=== PATIENT | female | born 1945 | race Caucasian/White ===

== ENCOUNTER 2016-08-05 05:17 | Observation (INO) | payer MEDICARE, OTHER ==
--- NOTE | ~2016-08-05 | DS ---
Discharge Summary [id number] [place] [address] NAME: CRISTINA PEDROZA : 43 STATUS : DIS Tanesha PAT#: [id number] AGE: 71 ADM/REG DATE : 08/05/16 MR#: [id number] REPORT SERV DATE: 08/07/16 DICTATED BY: JR. PANTOJA WILLIAM JOHN DATE: 08/06/16 REPORT STATUS : Draft TRANSCRIBED BY: GABBY DATE: 08/06/16 ADMISSION DATE: 08/05/2016 DISCHARGE DATE: 08/06/2016 DISCHARGE DIAGNOSES: 1. Hypoglycemia with dizziness. 2. Diabetes mellitus type 2 with a hemoglobin A1c of 7.4. 3. Hypertension. 4. Acute kidney injury. 5. History of coronary artery disease. 6. Chronic pain syndrome. OPERATIONS, PROCEDURES, AND TREATMENTS: Include: 1. CT of the brain done 08/05/2016, which showed mild atrophy without acute pathology. 2. Chest x-ray done 08/05/2016, which showed clear lungs with normal heart size. 3. MRI of the brain done 08/05/2016 which showed mild generalized atrophy without acute evidence of bleed or infarct. There was some old deep white matter ischemic change in both hemispheres. DISCHARGE MEDICATIONS: Include: 1. Lantus 20 units at the hour of sleep. 2. Methimazole 10 mg orally daily. 3. Metoprolol 25 mg orally twice a day. 4. Valium 10 mg orally three times a day. 5. Glipizide/metformin 2.5/500 two tablets orally twice a day. 6. Zanaflex 8 mg at bedtime. 7. Lasix 40 mg daily. 8. Prilosec 20 mg daily. 9. Potassium chloride 10 mEq daily. 10.Ramipril 2.5 mg daily. 11.Meclizine 25 mg every six hours as needed. 12.Albuterol metered-dose inhaler as needed. 13.Percocet 10/325 q.6 hours p.r.n. HOSPITAL COURSE: The patient was a 71-year-old white female with past history of diabetes mellitus with insulin requirement, who presented to the emergency room on 08/05/2016 after awakening with dizziness and confusion. She was found to be hypoglycemic. For complete details of the admission history, physical, and presenting data, please see Dr. Juliana Garcia' dictated history and physical. The patient was admitted to the hospital. She underwent an MRI of the brain, CT of the head, and chest x-ray, which were unrevealing. She was placed briefly on D5 drip. This was quickly weaned off. The patient had no further episodes of hypoglycemia, felt stable for discharge. She was seen by diabetic education, was supplied a new glucometer with prescription for test strips. We reviewed her home medications, and we will decrease her Lantus from 35 units at the hour of sleep to 20 units at the hour of sleep until seen by Dr. Discharge Summary [address]. [address] NAME: CRISTINA PEDROZA : 43 STATUS : DIS Tanesha PAT#: [id number] AGE: 71 ADM/REG DATE : 08/05/16 MR#: [id number] REPORT SERV DATE: 08/07/16 DICTATED BY: JR. PANTOJA WILLIAM JOHN DATE: 08/06/16 REPORT STATUS : Draft TRANSCRIBED BY: GABBY DATE: 08/06/16 Elsa. She was instructed to record her blood sugars up until followup with Dr. Hunter which is scheduled for 08/27/2016. I discussed with the patient that she will likely have somewhat higher blood sugars than she is used to up until followup with Dr. Hunter. FOLLOWUP ISSUES: 1. Refinement of antihyperglycemic regimen. 2. Needs to follow up with Ophthalmology as an outpatient as she reports visual changes, which have been progressive. 3. Routine health issues. WCoronaF/GABBY Abdirashid Pantoja Jr, MD / [id number] CC: MD Tariq Benavidez M.D.
--- NOTE | ~2016-08-05 | HP ---
History And Physical [address] [place]. [address] NAME: CRISTINA PEDROZA : 43 STATUS : ADM Tanesha PAT#: [id number] AGE: 71 ADM/REG DATE : 08/05/16 MR#: [id number] REPORT SERV DATE: 08/05/16 DICTATED BY: SANDOVAL MALDONADO DATE: 08/05/16 REPORT STATUS : Draft TRANSCRIBED BY: GABBY DATE: 08/05/16 DATE OF ADMISSION: 08/05/2016 CHIEF COMPLAINT: Dizziness and hypoglycemia. HISTORY OF PRESENT ILLNESS: A 71-year-old woman with past medical history of insulin- dependent diabetes type 2, brought into the hospital by EMS. The patient reports that she woke up in the morning feeling dizzy and confused. When she checked her sugars, noted to be at 66. At that time, she called the EMS, and she was brought into the hospital for further evaluation. The patient denies chest pain, shortness of breath, palpitations, diaphoresis, hemoptysis, melena, orthopnea, lower extremity swelling, slurred speech, localized weakness, loss of consciousness, headache, blurry vision, abdominal pain, nausea, vomiting, diarrhea, fever, chills, dysuria, urgency, or frequency. The patient was evaluated in the ED. Blood sugars were also noted to be low. The patient was given D50. The patient was also noted to have low magnesium level. Given 1 g in the emergency room. Hospitalist consulted for further inpatient management. Order was placed for a D10 at [facility]. ALLERGIES: INCLUDE CALCIUM CARBONATE, BUTORPHANOL TARTRATE, AND OTHERS PER MED. HOME MEDICATIONS: Include: 1. Potassium chloride 10 mEq p.o. daily. 2. Lasix 20 mg p.o. daily. 3. Diazepam 10 mg p.o. t.i.d. 4. Glucovance 5/500 one tab p.o. b.i.d. 5. Zanaflex 4 mg at bedtime. 6. Ramipril 2.5 mg p.o. daily. 7. Percocet 10/325 one tab p.o. every 6 hours as needed. 8. Lopressor 25 mg p.o. b.i.d. 9. Amaryl 4 mg p.o. daily. 10.Prilosec 20 mg p.o. daily. 11.Meclizine 25 mg p.o. every 6 hours as needed. 12.Combivent inhaled 4 times a day. PAST MEDICAL HISTORY: 1. Insulin-dependent diabetes type 2. 2. Hypertension. 3. Chronic back pain. SOCIAL HISTORY: Denies any alcohol, tobacco, or illicit drug use. PAST SURGICAL HISTORY: Hysterectomy and stents in 2003. FAMILY HISTORY: Noncontributory. REVIEW OF SYSTEMS: A 12-point system reviewed, otherwise negative per HPI. History And Physical [address] [address] NAME: CRISTINA PEDROZA : 43 STATUS : ADM Tanesha PAT#: [id number] AGE: 71 ADM/REG DATE : 08/05/16 MR#: [id number] REPORT SERV DATE: 08/05/16 DICTATED BY: SANDOVAL MALDONADO DATE: 08/05/16 REPORT STATUS : Draft TRANSCRIBED BY: GABBY DATE: 08/05/16 PHYSICAL EXAMINATION: VITALS: Temperature 98.2, heart rate 84, blood pressure 142/57, respiratory rate 14, O2 saturation 97 on room air. GENERAL: In no acute distress. HEENT: EOMI, PERRLA. Nonicteric sclerae. Nonerythematous pharynx. NECK: Supple. No JVD. No lymphadenopathy. RESPIRATORY: Clear to auscultation bilaterally. No wheezes, rhonchi, or crackles. CARDIOVASCULAR: Regular rate and rhythm. No murmurs, rubs, or gallops. ABDOMEN: Bowel sounds positive. Soft, nontender, nondistended. No rebound or guarding. EXTREMITIES: No edema or cyanosis. NEUROLOGICAL: Alert and oriented x3. Cranial nerves II through XII intact. Nonfocal. LABORATORY DATA: WBC of 7.6, hemoglobin 11.9, hematocrit 35.1, platelets 242. INR 1. Sodium 142, potassium 4.1, chloride 105, bicarb 29, creatinine 1.07, glucose 54, magnesium 1.1, troponin less than 0.2. Urinalysis negative. IMAGING: CT of the head without contrast. Impression: 1. Mild atrophy. No acute pathology seen. 2. Preliminary report was sent. Chest x-ray, portable. Impression: 1. Lungs clear. 2. Heart size normal. ASSESSMENT: 1. Dizziness secondary to hypoglycemia. 2. Insulin-dependent diabetes type 2. 3. Hypertension. 4. Acute renal insufficiency. 5. Hypomagnesemia. 6. Mild protein malnutrition. 7. Coronary artery disease, with history of PCI in 2003. 8. Chronic back pain. PLAN: The patient will be admitted for observation. Will be kept on D10W at KVO until blood glucose greater than 200. Accu-Cheks q.2 hours x3, then before meals and at bedtime. Start carb-modified diet. Hold insulin, long-acting and oral anti-hyperglycemics. Start sliding scale level 1 after blood glucose levels greater than 150. Replete magnesium. Electrolyte protocol. Check MRI of the head to rule out any evidence of CVA. EKG reviewed. No evidence of ACS. Troponin negative. Labs in the morning. Restart appropriate home medications. DVT prophylaxis, SCDs. GI prophylaxis, Pepcid. Further evaluation and management per clinical course. CODE STATUS: Full code. Total time for history and physical, 45 minutes. History And Physical [address] [address] NAME: CRISTINA PEDROZA : 43 STATUS : ADM Tanesha PAT#: [id number] AGE: 71 ADM/REG DATE : 08/05/16 MR#: [id number] REPORT SERV DATE: 08/05/16 DICTATED BY: SANDOVAL MALDONADO DATE: 08/05/16 REPORT STATUS : Draft TRANSCRIBED BY: GABBY DATE: 08/05/16 JERILYN/GABBY Diogenes Mahmood MD / [id number] CC: Diogenes Mahmood MD
[2016-08-05 04:25] LABS: BASOPHILS 0.3 %; BASOPHILS ABSOLUTE 0.02 10/3/uL (0.0-0.16); EOSINOPHILS 0.8 %; EOSINOPHILS ABSOLUTE 0.06 10/3/uL (0.0-0.53); ER CBC TAT 0 Hrs 08 Mins; HEMATOCRIT 35.1 % (36.0-48.0); HEMOGLOBIN 11.9 g/dL (12.0-16.0); IMMATURE GRANULOCYTES 0.1 %; IMMATURE GRANULOCYTES ABSOLUTE 0.01 10/3/uL (0.0-0.11); LYMPHOCYTES 29.8 %; LYMPHOCYTES ABSOLUTE 2.27 10/3/uL (0.67-4.30); MANUAL DIFF NO %; MEAN CORPUS HGB CONC 33.9 g/dL (32.0-36.0); MEAN CORPUSCULAR HEMOGLOB 30.8 pg (26.0-34.0); MEAN CORPUSCULAR VOLUME 90.9 fL (80-100); MEAN PLATELET VOLUME 9.8 fL (9.2-13.0); MONOCYTES 7.7 %; MONOCYTES ABSOLUTE 0.59 10/3/uL (0.21-1.20); NEUTROPHILS 61.3 %; NEUTROPHILS ABSOLUTE 4.68 10/3/uL (2.02-8.40); PLATELET COUNT 242 10/3/uL (150-400); RBC DISTRIBUTION WIDTH 11.6 % (12.0-16.0); RED CELL COUNT 3.86 10/6/uL (4.0-5.6); WHITE BLOOD CELLS 7.6 10/3/uL (4.5-10.5)
[2016-08-05 04:33] LABS: PARTIAL THROMBO TIME 38.5 SEC (22.5-37.2); PROTIME (NOT ORD) 13.3 SEC (12.0-14.5)
[2016-08-05 04:42] LABS: ALBUMIN 3.1 G/DL (3.5-5.0); CALCIUM, SERUM 8.7 MG/DL (8.5-10.4); CHEST PAIN PROFILE TAT 0 Hrs 25 Mins; CHLORIDE, SERUM 105 MMOL/L (96-112); CO2 (CARBON DIOXIDE) 29 MMOL/L (24-34); CREATININE 1.07 MG/DL (0.55-1.02); GFR AFRICAN AMERICAN 60 ML/MIN (>=60); GFR NON AFRICAN AMERICAN 52 ML/MIN (>=60); GLUCOSE, SERUM 96 MG/DL (60-99); POTASSIUM, SERUM 4.1 MMOL/L (3.5-5.3); SGOT(AST) 13 U/L (5-40); SGPT(ALT) 16 U/L (5-65); SODIUM, SERUM 142 MMOL/L (135-148); TOTAL BILIRUBIN 0.2 MG/DL (0-1.2); TOTAL PROTEIN 6.9 G/DL (6.0-8.5); TROPONIN I <0.02 NG/ML (<0.05)
[2016-08-05 04:43] LABS: ALKALINE PHOSPHATASE 87 U/L (45-117); BUN (BLOOD UREA NITROGEN) 25 MG/DL (6-23); DIRECT BILIRUBIN < 0.1 MG/DL (0.0-0.4); INDIRECT BILIRUBIN(NOT ORDER) 0.1 MG/DL (0.1-0.9)
[~2016-08-05 05:17] MED LIST: ALTA2.5 PO; AMARYL4 PO; COMBIVENT INH; DRAMAMINE25 MG PO; GLUCOV2.5 PO; GLUCOV5 PO; KLOR-CON 1010 MEQ PO; L20 PO; LANTUS SC; LOP25 PO; MCZ25 PO; METHIMAZOLE10 MG OR; METHIMAZOLE10 MG PO; PERCOCET1 TA4 PO; PRILO PO; ROXICODONE30 MG PO; SINGULAIR1 PO; VALIUM10 MG PO; ZANAFLEX 4 MG TA4 MG PO
[2016-08-05 06:12] LABS: ASCORBIC ACID (UR NOT ORDER) NEG (NEG); BILIRUBIN, URINE NEGATIVE (NEG); ER URINALYSIS TAT 0 Hrs 12 Mins; KETONE, URINE NEGATIVE (NEG); LEUKOCYTE ESTERASE(NOT OR NEG (NEG); NITRITE (URINE) NEG (NEG); WBC (NOT ORDERED) (RFLEX) < 1 (0-5)
[2016-08-05 12:56] LABS: FREE T4 1.84 NG/DL (0.76-1.46)
[2016-08-05 12:58] LABS: ULTRASENSITIVE TSH < 0.005 MCIU/ML (0.358-3.740)
[2016-08-05] MEDS ORDERED: VALIUM10 MG PO (17:33)
[2016-08-05] MEDS ORDERED: LANTUS SC (17:34)
[2016-08-05] MEDS ORDERED: METHIMAZOLE10 MG PO (17:34)
[2016-08-05] MEDS ORDERED: L40 PO (17:34)
[2016-08-05] MEDS ORDERED: ZANAFLEX 4 MG TA4 MG PO (17:34)
[2016-08-05] MEDS ORDERED: METAGLIP1 TA1 PO (17:34)
[2016-08-05] MEDS ORDERED: PRILO PO (17:35)
[2016-08-05] MEDS ORDERED: KLOR-CON 1010 MEQ PO (17:35)
[2016-08-05] MEDS ORDERED: ALTA2.5 PO (17:36)
[2016-08-05] MEDS ORDERED: PROAIR HFA INH (17:36)
[2016-08-05] MEDS ORDERED: MCZ25 PO (17:36)
[2016-08-05] MEDS ORDERED: LOP25 PO (17:37)
[2016-08-05] MEDS ORDERED: PERCOCET 10/3251 TAB PO (20:00)
[2016-08-05 21:39] LABS: CALCIUM, SERUM 9.4 MG/DL (8.5-10.4); CHLORIDE, SERUM 106 MMOL/L (96-112); CO2 (CARBON DIOXIDE) 26 MMOL/L (24-34); CREATININE 0.93 MG/DL (0.55-1.02); GFR AFRICAN AMERICAN 71 ML/MIN (>=60); GFR NON AFRICAN AMERICAN 61 ML/MIN (>=60); POTASSIUM, SERUM 4.5 MMOL/L (3.5-5.3); SODIUM, SERUM 141 MMOL/L (135-148)
[2016-08-05 21:44] LABS: BUN (BLOOD UREA NITROGEN) 18 MG/DL (6-23); GLUCOSE, SERUM 254 MG/DL (60-99)
[2016-08-06 04:06] LABS: BASOPHILS 0.3 %; BASOPHILS ABSOLUTE 0.02 10/3/uL (0.0-0.16); EOSINOPHILS 0.8 %; EOSINOPHILS ABSOLUTE 0.05 10/3/uL (0.0-0.53); HEMATOCRIT 32.8 % (36.0-48.0); HEMOGLOBIN 11.2 g/dL (12.0-16.0); LYMPHOCYTES 41.6 %; LYMPHOCYTES ABSOLUTE 2.75 10/3/uL (0.67-4.30); MEAN CORPUS HGB CONC 34.1 g/dL (32.0-36.0); MEAN CORPUSCULAR HEMOGLOB 30.4 pg (26.0-34.0); MEAN CORPUSCULAR VOLUME 89.1 fL (80-100); MEAN PLATELET VOLUME 10.1 fL (9.2-13.0); MONOCYTES 9.8 %; MONOCYTES ABSOLUTE 0.65 10/3/uL (0.21-1.20); NEUTROPHILS 47.5 %; NEUTROPHILS ABSOLUTE 3.14 10/3/uL (2.02-8.40); PLATELET COUNT 238 10/3/uL (150-400); RBC DISTRIBUTION WIDTH 11.7 % (12.0-16.0); RED CELL COUNT 3.68 10/6/uL (4.0-5.6); WHITE BLOOD CELLS 6.6 10/3/uL (4.5-10.5)
[2016-08-06 04:09] LABS: MANUAL DIFF NO %
[2016-08-06 04:21] LABS: BUN (BLOOD UREA NITROGEN) 18 MG/DL (6-23); CALCIUM, SERUM 8.9 MG/DL (8.5-10.4); CHLORIDE, SERUM 109 MMOL/L (96-112); CO2 (CARBON DIOXIDE) 26 MMOL/L (24-34); GFR AFRICAN AMERICAN 74 ML/MIN (>=60); GFR NON AFRICAN AMERICAN 64 ML/MIN (>=60); POTASSIUM, SERUM 4.1 MMOL/L (3.5-5.3); SODIUM, SERUM 143 MMOL/L (135-148)
[2016-08-06 04:24] LABS: GLUCOSE, SERUM 109 MG/DL (60-99)
== END 2016-08-06 13:34 | disposition home or self-care (01) ==
LOC: ER 05:17 → CDU1 07:41
PROVIDERS: Emergency Medicine; Internal Medicine
DX: E11.649 Type 2 diabetes mellitus with hypoglycemia without coma (principal); R42 Dizziness and giddiness; I25.10 Atherosclerotic heart disease of native coronary artery without angina pectoris; E46 Unspecified protein-calorie malnutrition; E83.42 Hypomagnesemia; E78.00 Pure hypercholesterolemia, unspecified; J45.909 Unspecified asthma, uncomplicated; F41.9 Anxiety disorder, unspecified; I10 Essential (primary) hypertension; N28.9 Disorder of kidney and ureter, unspecified; G89.4 Chronic pain syndrome; Z79.4 Long term (current) use of insulin; Z98.890 Other specified postprocedural states; Z90.710 Acquired absence of both cervix and uterus; Z91.040 Latex allergy status; Z88.8 Allergy status to other drugs, medicaments and biological substances; Z90.49 Acquired absence of other specified parts of digestive tract; Z23 Encounter for immunization
CPT/HCPCS: 70450; 70551; 71010; 80048; 80076; 81001; 82962; 83036; 83735; 84132; 84439; 84443; 84484; 85025; 85610; 85730; 90662; 93005; 96365; 96366; 96375; 96376; 99285; A9270-GY; G0008; G0378; J0360